=== PATIENT | female | born 1940 | race Caucasian/White ===

== ENCOUNTER 2016-10-12 14:58 | Inpatient (IN) | payer MEDICARE, MEDICAID ==
[2016-10-12] MEDS ORDERED: DILTIAZEM 25 MG/5 ML VIAL IV ONE (15:10)
[2016-10-12] MEDS ORDERED: SODIUM CHLORIDE 0.9% 10 ML FLUSH FLUSH PRN (15:10)
--- NOTE | 2016-10-12 15:18 | EDPRACDOC ---
- General Information Information Source: Patient Mode of Arrival: Car - History of Present Illness Onset: 30-45 mins HPI: Pt c/o palpitations, throat tightness and chest pain, sob. Denies fever, cough, congestion, n/v, abd pain, changes in bowel or bladder, leg swelling. Hx OR with 1 stent 5 yrs ago Chest Pain Location: Reports: Substernal Pain Radiation: Reports: Neck Symptoms Occur: Reports: Suddenly Cardiac Risk Factors: Reports: Hyperlipidemia, Hypertension, Diabetes Cardiac History of: Reports: Cardiac Cath, Stress Test, Stent PE Risk Factors: Reports: None Pain Came On: Reports: Suddenly Pain Status: Present Now Pain Description: Reports: Tightness Pain Severity: Mild Pain Worsens With: Reports: Nothing Pain Improves With: Reports: Nothing Associated Signs and Symptoms: Reports: SOB, Palpitations <Zakiya James - Last Filed: 10/12/16 18:35> <Star Marrero - Last Filed: 10/12/16 18:53> - General Information Stated Complaint: CP WITH PAIN IN THROAT 30 MINS AGO HX OR Time Seen by Provider: 10/12/16 15:10 Home Medications: Home Medications Lisinopril [Zestril] 40 mg PO DAILY 10/12/16 Metformin HCl 850 mg PO BID 10/12/16 Metoprolol Tartrate 25 mg PO BID 10/12/16 Rivaroxaban [Xarelto] 20 mg PO DAILY(MARQUES) #30 tablet 10/12/16 Tramadol HCl [Ultram] 50 mg PO DAILY PRN 10/12/16 Allergies/Adverse Reactions: Allergies Allergy/AdvReac Type Severity Reaction Status Date / Time No Known Allergies Allergy Verified 10/12/16 15:20 ED Past Medical History - History Reviewed Yes Nurses notes reviewed and agree except as marked - Social Medical History Smoking Status: Never smoker ETOH: None Substance Abuse: None <Zakiya James - Last Filed: 10/12/16 18:35> EDM Review of Systems - Review of Systems Constitutional: No Symptoms Reported. negative: Fever, Chills, Weakness, Fatigue, Loss of Appetite Ears: No Symptoms Reported. negative: Pain, Hearing Loss, Drainage, Ear Pulling Throat: No Symptoms Reported. negative: Pain, Swelling Nose: No Symptoms Reported. negative: Congestion, Bleeding, Discharge, Injection, Swelling, Deformity, Ecchymosis, Tender, Abrasion, Laceration Mouth: No Symptoms Reported. negative: Pain, Drooling Respiratory: Shortness of Breath Cardiovascular: Chest Pain, Palpitations Gastrointestinal: No Symptoms Reported. negative: Pain, Constipation, Nausea, Vomiting, Diarrhea, Melena, Formula Intolerance Genitourinary: No Symptoms Reported. negative: Dysuria, Hematuria, Frequency, Discharge, Bleeding, Testicular Pain, Neurological: No Symptoms Reported. negative: Headache, Dizziness, Seizure, Numbness, Weakness, Speech Difficulty, Gait Difficulty Musculoskeletal: Neck. negative: No Symptoms Reported, Arm, Ankle, Back, Chestwall, Elbow, Forearm, Femur, Foot, Hand, Hip, Knee, Leg, Pelvis, Ribs, Shoulder, Wrist Integumentary: No Symptoms Reported. negative: Itching, Rash, Bruising, Wound Allergic/Immunologic: No Symptoms Reported. negative: Hives, Itching Hematologic: No Symptoms Reported. negative: Lymphadenopathy, Easy Bruising, Easy Bleeding Psychiatric: No Symptoms Reported. negative: Anxiety, Depression, Hallucinations, Insomnia, Suicidal <Zakiya James - Last Filed: 10/12/16 18:35> - Physical Exam Constitutional: Alert, Distress (mild) Oriented to: Time, Person, Place Last recorded Vital Signs: Oxygen Pulse Oxygen Saturation O2 Device Oxygen Flow Rate Fraction of Inspired Oxygen ( FIO2) - HEENT Head: Normal ( normocephalic) Eye Exam: Normal (PERRL, EOMI, Sclera white) Neck: Normal (FROM, trachea at midline) - Respiratory/Cardiovascular Respiratory: Normal - CTA (BBS clear to auscultation without adventitious sounds ) Cardiovascular: Tachycardia, Irregular - GI Auscultation: Normal (NABS) Palpation: Normal (Soft,No rebound or guarding, non distended) Tenderness: Non tender - Musculoskeletal Back: Normal (Non-Tender) Extremities: Normal (Normal tone, Pulses 2+ No cyanosis or edema, FROM) - Integumentary Skin: Normal, Warm, Dry Lymphatics: Normal (no adenopathy) - Neurologic Memory Impaired: Normal Motor Function: Normal (Normal tone, Pulses 2+ No cyanosis or edema, FROM) Mood Description: Normal Perception: Normal <Zakiya James - Last Filed: 10/12/16 18:35> - Physical Exam Last recorded Vital Signs: Last Vital Signs Temp 97.8 F 10/12/16 15:10 Pulse 60 10/12/16 16:05 Resp 16 10/12/16 16:05 BP 119/59 L 10/12/16 16:05 Pulse Ox 92 10/12/16 16:05 Oxygen Pulse Oxygen Saturation 92 O2 Device Room Air Oxygen Flow Rate Fraction of Inspired Oxygen ( FIO2) <Star Marrero - Last Filed: 10/12/16 18:53> ED Chest Pain Exam - Respiratory/Cardiovascular Respiratory: Normal - CTA (clear to auscultation without adventitious sounds) Cardiovascular/Chest: Tachycardia, Irregular Radial Pulse: Normal Edema: negative: 1+, 2+, 3+, 4+, 5, 6 Chest Palpation: Normal (No chest tenderness) <Zakiya James - Last Filed: 10/12/16 18:35> - Differential Diagnosis Angina, CHF, Myocardial infarction, Other (afib with RVR) - Action Patient received Aspirin within last 24 hours?: Yes ASA given in the ED: No - Re-evaluation Re-evaluation 1 Re-evaluation Time: 15:48 (chest tightness improved) Re-evaluation 2 Re-evaluation Time: 18:36 (no chest pain, much improved) - Results 10/12/16 15:35 10/12/16 15:35 - EKG EKG #1 EKG Time: 15:06 Rate: bpm: 166 [place]: LAD Rhythm: Afib (RVR) Block: None ST: Nonsp Comments: no old ekg EKG #2 EKG Time: 15:58 Rate: bpm: 63 [place]: Normal Rhythm: NSR Block: None ST: Nonsp Comments: no old ekg - Diagnostic Imaging Chest Image interpreted by: Radiologist IMPRESSION: No acute cardiopulmonary process. <Zakiya James - Last Filed: 10/12/16 18:35> - Results 10/12/16 15:35 10/12/16 15:35 WBC 9.5 xk/uL (3.8-10.8) 10/12/16 15:35 RBC 5.32 xM/uL (4.20-5.40) 10/12/16 15:35 Hgb 16.2 g/dL (12.0-16.0) H 10/12/16 15:35 Hct 48.6 % (36-47) H 10/12/16 15:35 MCV 91 fL (81-99) 10/12/16 15:35 MCH 30.4 pg (27-32) 10/12/16 15:35 MCHC 33.3 g/dl (33-36) 10/12/16 15:35 RDW 13.8 % (11.5-14.5) 10/12/16 15:35 Plt Count 241 xk/uL (130-400) 10/12/16 15:35 MPV 9.1 fL (7.4-10.4) 10/12/16 15:35 Neut % (Auto) 58.8 % (45-76) 10/12/16 15:35 Lymph % (Auto) 28.1 % (17-44) 10/12/16 15:35 [place] % (Auto) 8.9 % (3-10) 10/12/16 15:35 Eos % (Auto) 2.9 % (0-5) 10/12/16 15:35 Baso % (Auto) 1.3 % (0-2) 10/12/16 15:35 Absolute Neuts (auto) 5.51 xk/uL (1.7-8.2) 10/12/16 15:35 Absolute Lymphs (auto) 2.66 xk/uL (0.65-4.75) 10/12/16 15:35 PT 10.0 SEC (9.2-11.2) 10/12/16 15:35 INR 1.0 10/12/16 15:35 APTT 24.5 SEC (22-35) 10/12/16 15:35 Puncture Site Right radial 10/12/16 16:00 pH 7.400 pH UNITS (7.35-7.45) 10/12/16 16:00 pCO2 37.0 mmHg (35-45) 10/12/16 16:00 pO2 68.0 mmHg (80-100) L 10/12/16 16:00 HCO3 22.9 MMOL/L (22-26) 10/12/16 16:00 Total CO2 24.0 MMOL/L (23-27) 10/12/16 16:00 Base Excess -1.5 (+/- 2) 10/12/16 16:00 FiO2 % 21% 10/12/16 16:00 Specimen Drawn By Kasgl 10/12/16 16:00 Sodium 141 mEq/L (137-146) 10/12/16 15:35 Potassium 4.2 mEq/L (3.5-5.1) 10/12/16 15:35 Chloride 104 mEq/L (98-107) 10/12/16 15:35 Carbon Dioxide 24 mMOL/L (22-33) 10/12/16 15:35 Anion Gap 17 mEq/L (8-16) H 10/12/16 15:35 BUN 20 MG/DL (7-17) H 10/12/16 15:35 Creatinine 0.90 MG/DL (0.52-1.04) 10/12/16 15:35 Estimated GFR (MDRD) > 60 mL/min (>=60) 10/12/16 15:35 Glucose 133 MG/DL (70-99) H 10/12/16 15:35 Calculated Osmolality 276 MOs/Kg (270-290) 10/12/16 15:35 Calcium 9.6 MG/DL (8.4-10.2) 10/12/16 15:35 Total Bilirubin 0.9 MG/DL (0.2-1.3) 10/12/16 15:35 AST 70 IU/L (14-36) H 10/12/16 15:35 ALT 61 IU/L (9-52) H 10/12/16 15:35 Alkaline Phosphatase 90 IU/L (55-165) 10/12/16 15:35 Troponin I < 0.01 ng/mL (<.04) 10/12/16 15:35 Fss-F-Nhjnyokiakg Pept 179 pg/mL (0-1800) 10/12/16 15:35 Total Protein 7.6 G/DL (6.3-8.2) 10/12/16 15:35 Albumin 4.4 G/DL (3.5-5.0) 10/12/16 15:35 Urine Color Pale yellow 10/12/16 15:52 Urine Clarity Clear 10/12/16 15:52 Urine pH 5.0 (5.0-8.0) 10/12/16 15:52 Ur Specific [place] 1.005 (1.003-1.035) 10/12/16 15:52 Urine Protein 1+ (NEG/TRACE) H 10/12/16 15:52 Urine Glucose (UA) Neg (NEGATIVE) 10/12/16 15:52 Urine Ketones Neg (NEGATIVE) 10/12/16 15:52 Urine Occult Blood Neg (NEG/TRACE) 10/12/16 15:52 Urine Nitrite Neg (NEGATIVE) 10/12/16 15:52 Urine Bilirubin Neg (NEGATIVE) 10/12/16 15:52 Urine Urobilinogen <2.0 MG/DL (0-1) 10/12/16 15:52 Ur Leukocyte Esterase Neg (NEGATIVE) 10/12/16 15:52 Urine RBC 0-2 (0-5) 10/12/16 15:52 Urine WBC 0-2 (0-5) 10/12/16 15:52 Ur Epithelial Cells 1+ 10/12/16 15:52 Urine Bacteria Few (NEG/FEW) 10/12/16 15:52 Urine Mucus Sm amt (NEG/OCC) 10/12/16 15:52 Lab Results 10/12/16 10/12/16 10/12/16 16:00 15:52 15:35 WBC RBC Hgb Hct MCV MCH MCHC RDW Plt Count MPV Neut % (Auto) Lymph % (Auto) [place] % (Auto) Eos % (Auto) Baso % (Auto) Absolute Neuts (auto) Absolute Lymphs (auto) PT 10.0 INR 1.0 APTT 24.5 Puncture Site Right radial pH 7.400 pCO2 37.0 pO2 68.0 L HCO3 22.9 Total CO2 24.0 Base Excess -1.5 FiO2 % 21% Specimen Drawn By Kasgl Sodium Potassium Chloride Carbon Dioxide Anion Gap BUN Creatinine Estimated GFR (MDRD) Glucose Calculated Osmolality Calcium Total Bilirubin AST ALT Alkaline Phosphatase Troponin I Gxc-G-Liiznzfyayg Pept Total Protein Albumin Urine Color Pale yellow Urine Clarity Clear Urine pH 5.0 Ur Specific [place] 1.005 Urine Protein 1+ H Urine Glucose (UA) Neg Urine Ketones Neg Urine Occult Blood Neg Urine Nitrite Neg Urine Bilirubin Neg Urine Urobilinogen <2.0 Ur Leukocyte Esterase Neg Urine RBC 0-2 Urine WBC 0-2 Ur Epithelial Cells 1+ Urine Bacteria Few Urine Mucus Sm amt 10/12/16 10/12/16 15:35 15:35 WBC 9.5 RBC 5.32 Hgb 16.2 H Hct 48.6 H MCV 91 MCH 30.4 MCHC 33.3 RDW 13.8 Plt Count 241 MPV 9.1 Neut % (Auto) 58.8 Lymph % (Auto) 28.1 [place] % (Auto) 8.9 Eos % (Auto) 2.9 Baso % (Auto) 1.3 Absolute Neuts (auto) 5.51 Absolute Lymphs (auto) 2.66 PT INR APTT Puncture Site pH pCO2 pO2 HCO3 Total CO2 Base Excess FiO2 % Specimen Drawn By Sodium 141 Potassium 4.2 Chloride 104 Carbon Dioxide 24 Anion Gap 17 H BUN 20 H Creatinine 0.90 Estimated GFR (MDRD) > 60 Glucose 133 H Calculated Osmolality 276 Calcium 9.6 Total Bilirubin 0.9 AST 70 H ALT 61 H Alkaline Phosphatase 90 Troponin I < 0.01 Yjw-X-Iihxkbosliw Pept 179 Total Protein 7.6 Albumin 4.4 Urine Color Urine Clarity Urine pH Ur Specific [place] Urine Protein Urine Glucose (UA) Urine Ketones Urine Occult Blood Urine Nitrite Urine Bilirubin Urine Urobilinogen Ur Leukocyte Esterase Urine RBC Urine WBC Ur Epithelial Cells Urine Bacteria Urine Mucus Laboratory Results - last 24 hr 10/12/16 10/12/16 10/12/16 15:35 15:35 15:35 WBC 9.5 RBC 5.32 Hgb 16.2 H Hct 48.6 H MCV 91 MCH 30.4 MCHC 33.3 RDW 13.8 Plt Count 241 MPV 9.1 Neut % (Auto) 58.8 Lymph % (Auto) 28.1 [place] % (Auto) 8.9 Eos % (Auto) 2.9 Baso % (Auto) 1.3 Absolute Neuts (auto) 5.51 Absolute Lymphs (auto) 2.66 PT 10.0 INR 1.0 APTT 24.5 Puncture Site pH pCO2 pO2 HCO3 Total CO2 Base Excess FiO2 % Specimen Drawn By Sodium 141 Potassium 4.2 Chloride 104 Carbon Dioxide 24 Anion Gap 17 H BUN 20 H Creatinine 0.90 Estimated GFR (MDRD) > 60 Glucose 133 H Calculated Osmolality 276 Calcium 9.6 Total Bilirubin 0.9 AST 70 H ALT 61 H Alkaline Phosphatase 90 Troponin I < 0.01 Wic-U-Mhmnjyompxj Pept 179 Total Protein 7.6 Albumin 4.4 Urine Color Urine Clarity Urine pH Ur Specific [place] Urine Protein Urine Glucose (UA) Urine Ketones Urine Occult Blood Urine Nitrite Urine Bilirubin Urine Urobilinogen Ur Leukocyte Esterase Urine RBC Urine WBC Ur Epithelial Cells Urine Bacteria Urine Mucus 10/12/16 10/12/16 15:52 16:00 WBC RBC Hgb Hct MCV MCH MCHC RDW Plt Count MPV Neut % (Auto) Lymph % (Auto) [place] % (Auto) Eos % (Auto) Baso % (Auto) Absolute Neuts (auto) Absolute Lymphs (auto) PT INR APTT Puncture Site Right radial pH 7.400 pCO2 37.0 pO2 68.0 L HCO3 22.9 Total CO2 24.0 Base Excess -1.5 FiO2 % 21% Specimen Drawn By Kasgl Sodium Potassium Chloride Carbon Dioxide Anion Gap BUN Creatinine Estimated GFR (MDRD) Glucose Calculated Osmolality Calcium Total Bilirubin AST ALT Alkaline Phosphatase Troponin I Mwt-A-Uexahtwatsm Pept Total Protein Albumin Urine Color Pale yellow Urine Clarity Clear Urine pH 5.0 Ur Specific [place] 1.005 Urine Protein 1+ H Urine Glucose (UA) Neg Urine Ketones Neg Urine Occult Blood Neg Urine Nitrite Neg Urine Bilirubin Neg Urine Urobilinogen <2.0 Ur Leukocyte Esterase Neg Urine RBC 0-2 Urine WBC 0-2 Ur Epithelial Cells 1+ Urine Bacteria Few Urine Mucus Sm amt Laboratory Results 10/12/16 15:35 10/12/16 15:35 <Star Marrero - Last Filed: 10/12/16 18:53> - Departure Disposition: Home Education/Counseling Given To: Patient, Family Member Education/Counseling Given Regarding: Diagnosis, Treatment <Zakiya James - Last Filed: 10/12/16 18:35> - Departure Yes I personally saw and evaluated the patient. Disposition: Admit IP To This Hospital Decision to Admit Time: 18:53 Decision to admit date: 10/12/16 Decision to admit: from ED - Physician Consulted Cardiology Time Called: 16:33 Provider Called: Bry Collins Time Felt Hat Pouncing Operator Hand Returned Call: 16:33 Consult Reason: CASE DISCUSSED. CADS VASC GREATER THAN 2. REC. 20 MG XARELTO DAILY, 2ND SET WITH TROP DUE TO CHEST PAIN. IF OKAY HOME WITHE CARDIO F/U. Hospitalist Time Called: 18:53 Provider Called: Thomas Mejia Time Felt Hat Pouncing Operator Hand Returned Call: 18:53 <Star Marrero - Last Filed: 10/12/16 18:53> - Departure Condition: Good Final Diagnosis: Atrial fibrillation with RVR, Elevated troponin Chest pain Qualifiers: Chest pain type: unspecified Qualified Code(s): R07.9 - Chest pain, unspecified Referrals: Waqar La PA [Primary Care Provider] - Call for Appointment Bry Collins MD [Staff Physician] - Call for Appointment Prescriptions: New Rivaroxaban [Xarelto] 20 mg PO DAILY(MARQUES) #30 tablet No Action Metoprolol Tartrate 25 mg PO BID Metformin HCl 850 mg PO BID Lisinopril [Zestril] 40 mg PO DAILY Tramadol HCl [Ultram] 50 mg PO DAILY PRN PRN Reason: Pain Forms: ED Discharge Instructions Additional Instructions: Return for worse or different symptoms.
[2016-10-12] MEDS ORDERED: Diltiazem HCl 100 MG in D5W 100 ML IV SCH (15:36)
--- NOTE | 2016-10-12 15:44 | DIRPT ---
CLINICAL DATA: Throat tightness and chest pain EXAM: PORTABLE CHEST 1 VIEW COMPARISON: None. FINDINGS: Normal mediastinum and cardiac silhouette. Normal pulmonary vasculature. No evidence of effusion, infiltrate, or pneumothorax. No acute bony abnormality. IMPRESSION: No acute cardiopulmonary process. Electronically Signed By: Martinez Wick M.D. On: 10/12/2016 15:41
[2016-10-12 15:53] LABS: AUTOMATED BASOPHIL 1.3 % (0-2); AUTOMATED EOSINOPHIL 2.9 % (0-5); AUTOMATED LYMPH 28.1 % (17-44); AUTOMATED MONOCYTE 8.9 % (3-10); AUTOMATED NEUTROPHIL 58.8 % (45-76); MPV 9.1 fL (7.4-10.4)
[2016-10-12 16:05] LABS: ALLEN'S TEST PASS; BEb -1.5 (+/- 2)
[2016-10-12 16:06] LABS: ABG Draw Site Right Radial
[2016-10-12 16:10] LABS: BLOOD UREA NITROGEN 20 MG/DL (7-17); CALCIUM 9.6 MG/DL (8.4-10.2); CALCULATED OSMOLALITY 276 MOs/Kg (270-290); CHLORIDE 104 mEq/L (98-107); GLUCOSE 133 MG/DL (70-99); PARTIAL THROMB. TIME 24.5 SEC (22-35); SODIUM LEVEL 141 mEq/L (137-146); TOTAL PROTEIN 7.6 G/DL (6.3-8.2)
[2016-10-12 16:13] LABS: LEUKOCYTES/URINE NEG (NEGATIVE); NITRITE/URINE NEG (NEGATIVE); RBC/URINE 0-2 (0-5); URINE OCCULT BLOOD NEG (NEG/TRACE); WBC/URINE 0-2 (0-5)
[2016-10-12] MEDS ORDERED: Enoxaparin 1 mg per kg per dose SQ ONE (18:53)
[2016-10-12] MEDS ORDERED: PROMETHAZINE 25 MG/ML VIAL IV PRN (18:59)
[2016-10-12] MEDS ORDERED: FLEET 4.5 OZ ENEMA PR PRN (18:59)
[2016-10-12] MEDS ORDERED: ACETAMINOPHEN 325 MG/TAB TABLET PO PRN (18:59)
[2016-10-12] MEDS ORDERED: ZOLPIDEM TARTRATE 5 MG TAB PO PRN (18:59)
[2016-10-12] MEDS ORDERED: MAGNESIUM HYDROXIDE 30 ML BOTTLE PO PRN (18:59)
[2016-10-12] MEDS ORDERED: ONDANSETRON HCL 4 MG/2 ML VIAL IV PRN (18:59)
[2016-10-12] MEDS ORDERED: BENZONATATE 100 MG PERLES PO PRN (18:59)
[2016-10-12] MEDS ORDERED: NITROGLYCERINE 0.4 MG TAB SL PRN (18:59)
[2016-10-12] MEDS ORDERED: SENNA CONCENTRATE TAB PO PRN (18:59)
[2016-10-12] MEDS ORDERED: Pharmacy Order Set Alert SCH (19:00)
[2016-10-12] MEDS ORDERED: ENOXAPARIN SODIUM 80 MG, ENOXAPARIN SODIUM 30 MG SQ ONE ×2 (19:00)
[2016-10-12] MEDS ORDERED: TRAMADOL HCL 50 MG TAB PO PRN (19:06)
--- NOTE | 2016-10-12 19:42 | HISTPHYS ---
- Chief Complaint Throat tightness and palpitations - History of Present Illness Patient is morbidly obese 76-year-old white female lives with her daughter and son-in-law who comes into the emergency room this evening complaining throat tightness starting several hours ago and palpitations. Shortness breath is gotten worse with the palpitations and states that it feels like she did in 2010 when she was admitted to the hospital in [facility] then transferred to [facility] for cardiac catheterization and had a stent placed. She was then on medication for a year and states she is unable to take aspirin because of gastric complaints. She did take 4 aspirin today however. She quit smoking 30 years ago and does not drink any alcoholic beverages. She is a [id number] diabetic morbidly obese with BMI of 43.6 suffering with hypertension obstructive sleep apnea using nocturnal CPAP and has GERD. - Medical History Cardiac History: Reports: Hypertension, Heart Attack, Cardiac Catheterization, Hypercholesterolemia Respiratory History: Reports: Other GI/ History: Reports: Gastroesophageal Reflux Musculoskeletal History: Reports: Arthritis Systemic History: Denies: Cancer Neurological History: Reports: No Significant History Psychological History: Denies: Depression - Surgical History Reports: Cardiac Catheterization (One coronary artery stent 2010 at [facility] in [facility]) Right ankle fracture repaired surgically and ureteral obstruction at the age of 18 bilateral lens implant - Medictions/Allergies Allergies No Known Allergies Allergy (Verified 10/12/16 15:20) Current Medication List: Reviewed Home Medications Lisinopril [Zestril] 40 mg PO DAILY 10/12/16 Metformin HCl 850 mg PO BID 10/12/16 Metoprolol Tartrate 25 mg PO BID 10/12/16 Rivaroxaban [Xarelto] 20 mg PO DAILY(MARQUES) #30 tablet 10/12/16 Tramadol HCl [Ultram] 50 mg PO DAILY PRN 10/12/16 - Family History Reports: Hypertension, Diabetes, Cardiac Disorders - Social History Travel Outside of [place] in the Last 3 Months?: No Lives: With Family Smoking Status: Former smoker (Quit smoking 30 years ago) Social History: Denies: Alcohol Use, Substance Use Disorder (No longer drinks alcohol) - Review of Systems Constitutional: Weakness Eyes: No Symptoms Reported (No blurry vision, visual changes, eye pain, or eye redness.) Ears: No Symptoms Reported (No ear pain or discharge) Nose: No Symptoms Reported (No nasal discharge/congestion or bleeding) Mouth: No Symptoms Reported (No oropharyngeal lesions or erythema) Throat/Neck: No Symptoms Reported (No throat pain or swelling.No oropharyngeal lesions or erythema.) Respiratory: Shortness of Breath, Other (Obstructive sleep apnea wearing CPAP nocturnally) Cardiovascular: Chest Pain, Palpitations Gastrointestinal: No Symptoms Reported (No abdominal pain, nausea, vomiting, diarrhea, constipation, or bloody stool.) Genitourinary: No Symptoms Reported (No dysuria or hematuria.) Neurological: No Symptoms Reported (No headache, dizziness, seizures, or focal weakness.) Musculoskeletal:: Arthritis, Osteoarthritis Integumentary: No Symptoms Reported (no rashes or lesions) Allergic/Immunologic: No Symptoms Reported (no rashes or lesions) Hematologic: No Symptoms Reported (No chronic anemia, bleeding, or easy bruising.), Other (Lymphatics- no lymph node swelling or pain.) Endocrine: Diabetes Psychiatric: No Symptoms Reported (Fully oriented, with normal and appropriate affect.) - Physical Exam Vital Signs: Initial Vitals Temperature 97.8 F 10/12/16 15:10 Pulse Rate 168 H 10/12/16 15:10 Respiratory Rate 18 10/12/16 15:10 Blood Pressure 198/93 H 10/12/16 15:10 Pulse Oxygen Saturation 93 10/12/16 15:10 Constitutional: Alert (Awake, Fully oriented. Normal and appropriate affect.Well appearing. Well nourished.), No apparent distress Oriented to: Time, Person, Place - HEENT Head: Normal (normocephalic, atraumatic.), Other (No cervical lymphadenopathy. No supraclavicular lymphadenopathy. Neck: No palpable mass, supple , trachea midline.) Eye: Normal (pupils equal, reactive to light, and round; EOMI, Sclera white) Oropharynx: Normal (Pharynx: Moist without exudate,Gums-no swelling, No oropharyngeal lesions or erythema, Mucous membranes are dry.) ENT EAC: Normal (No oropharyngeal lesions or erythema. Mucous membranes are dry. ) TMJ: Normal Nose: No Symptoms Reported (septum midline, Nares patent, without discharge or bleeding.) Respiratory: Normal - CTA (Clear to auscultation bilaterally. No wheezing, rales , rhonchi. Chest wall movements are symmetric. No use of accessory muscles to breathe.) Cardiovascular: Normal (RRR , Normal S1, S2. No murmurs, rubs, or gallops. PMI non-displaced. Carotids: no carotid bruits. No bradycardia or tachycardia. DP pulses 2+ bilaterally.) - GI Auscultation: Normal (normal active sounds) Palpation: Normal (Soft,non distended,nontender. No hepatosplenomegaly.), Other (Morbid obesity with BMI 41.7) Tenderness: Non tender (No rebound or guarding) Duong's Sign: Negative - Musculoskeletal Back: Normal (Non-Tender) Extremities: Normal (Normal tone, DP pulses 2+ bilaterally, No cyanosis or edema bilaterally, FROM bilaterally.) Spine: non-tender, normal inspection, limited range of motion - Integumentary Skin: Normal (Clean, dry, and intact. No rashes. No lesions.) Lymphatics: Normal (No cervical lymphadenopathy. No supraclavicular lymphadenopathy.) - Neurologic Memory Impaired: Normal Motor Function: Normal (Motor 5/5 throughout.Normal tone, Pulses 2+ No cyanosis or edema, FROM) Cranial Nerve: Normal (CN II-XII intact sensation, strength 5/5) Cerebellar: Normal (Babinski: toes downgoing bilaterally. Intact Finger to nose. Sensory grossly intact to light touch. Intact rapid alternating movements bilaterally. No pronator drift.) Mood Description: Normal (Fully oriented. Normal and appropriate affect.) Thought: Coherent Perception: Normal (Normal and appropriate affect.) - Focused CV Perfusion Exam Vital Signs: Last Vital Signs Temp 97.8 F 10/12/16 15:10 Pulse 55 L 10/12/16 19:00 Resp 20 10/12/16 19:00 BP 141/60 10/12/16 19:00 Pulse Ox 93 10/12/16 19:00 - Lab Results 10/12/16 15:35 Laboratory Results - last 24 hr 10/12/16 10/12/16 10/12/16 15:35 15:35 15:35 WBC 9.5 RBC 5.32 Hgb 16.2 H Hct 48.6 H MCV 91 MCH 30.4 MCHC 33.3 RDW 13.8 Plt Count 241 MPV 9.1 Neut % (Auto) 58.8 Lymph % (Auto) 28.1 [place] % (Auto) 8.9 Eos % (Auto) 2.9 Baso % (Auto) 1.3 Absolute Neuts (auto) 5.51 Absolute Lymphs (auto) 2.66 PT 10.0 INR 1.0 APTT 24.5 Puncture Site pH pCO2 pO2 HCO3 Total CO2 Base Excess FiO2 % Specimen Drawn By Sodium 141 Potassium 4.2 Chloride 104 Carbon Dioxide 24 Anion Gap 17 H BUN 20 H Creatinine 0.90 Estimated GFR (MDRD) > 60 Glucose 133 H Calculated Osmolality 276 Calcium 9.6 Total Bilirubin 0.9 AST 70 H ALT 61 H Alkaline Phosphatase 90 Troponin I < 0.01 [id number] Pept 179 Total Protein 7.6 Albumin 4.4 Urine Color Urine Clarity Urine pH Ur Specific [place] Urine Protein Urine Glucose (UA) Urine Ketones Urine Occult Blood Urine Nitrite Urine Bilirubin Urine Urobilinogen Ur Leukocyte Esterase Urine RBC Urine WBC Ur Epithelial Cells Urine Bacteria Urine Mucus 10/12/16 10/12/16 10/12/16 15:52 16:00 18:01 WBC RBC Hgb Hct MCV MCH MCHC RDW Plt Count MPV Neut % (Auto) Lymph % (Auto) [place] % (Auto) Eos % (Auto) Baso % (Auto) Absolute Neuts (auto) Absolute Lymphs (auto) PT INR APTT Puncture Site Right radial pH 7.400 pCO2 37.0 pO2 68.0 L HCO3 22.9 Total CO2 24.0 Base Excess -1.5 FiO2 % 21% Specimen Drawn By [place] Sodium Potassium Chloride Carbon Dioxide Anion Gap BUN Creatinine Estimated GFR (MDRD) Glucose Calculated Osmolality Calcium Total Bilirubin AST ALT Alkaline Phosphatase Troponin I 0.27 [id number] Pept Total Protein Albumin Urine Color Pale yellow Urine Clarity Clear Urine pH 5.0 Ur Specific [place] 1.005 Urine Protein 1+ H Urine Glucose (UA) Neg Urine Ketones Neg Urine Occult Blood Neg Urine Nitrite Neg Urine Bilirubin Neg Urine Urobilinogen <2.0 Ur Leukocyte Esterase Neg Urine RBC 0-2 Urine WBC 0-2 Ur Epithelial Cells 1+ Urine Bacteria Few Urine Mucus Sm amt 10/12/16 21:45 WBC RBC Hgb Hct MCV MCH MCHC RDW Plt Count MPV Neut % (Auto) Lymph % (Auto) [place] % (Auto) Eos % (Auto) Baso % (Auto) Absolute Neuts (auto) Absolute Lymphs (auto) PT INR APTT Puncture Site pH pCO2 pO2 HCO3 Total CO2 Base Excess FiO2 % Specimen Drawn By Sodium Potassium Chloride Carbon Dioxide Anion Gap BUN Creatinine Estimated GFR (MDRD) Glucose Calculated Osmolality Calcium Total Bilirubin AST ALT Alkaline Phosphatase Troponin I 0.82 H* D Gvx-Q-Pysryquxcat Pept Total Protein Albumin Urine Color Urine Clarity Urine pH Ur Specific [place] Urine Protein Urine Glucose (UA) Urine Ketones Urine Occult Blood Urine Nitrite Urine Bilirubin Urine Urobilinogen Ur Leukocyte Esterase Urine RBC Urine WBC Ur Epithelial Cells Urine Bacteria Urine Mucus - Diagnostic Findings Initial EKG shows rapid atrial fib up to [address] depressions anteriorly and laterally. - Assessment (1) Acute coronary insufficiency I24.8 - OTHER FORMS OF ACUTE ISCHEMIC HEART DISEASE Acute Present on Admission: Yes Coronary insufficiency with positive troponin up to 0.85 and will repeat another 1 in a.m.. Consult obtained with Dr. Garcia and patient may go to [facility] for cardiac catheterization tomorrow morning. She states that the discomfort she had today is similar to that which she experienced 2010 when she had her previous stent placed at [facility] in [place]. (2) Non-insulin dependent type 2 diabetes mellitus E11.9 - TYPE 2 DIABETES MELLITUS WITHOUT COMPLICATIONS Chronic Present on Admission: Yes Sliding scale insulin therapy and continue medications. (3) Hypertension I10 - ESSENTIAL (PRIMARY) HYPERTENSION Chronic Present on Admission: Yes Qualifiers: Hypertension type: essential hypertension Qualified Code(s): I10 - Essential (primary) hypertension Continue medications. (4) Atrial fibrillation with RVR I48.91 - UNSPECIFIED ATRIAL FIBRILLATION Acute Present on Admission: Yes Rapid atrial fib may be a manifestation of coronary artery disease or vice versa with associated stress from exertional work associated from packing and moving back to [facility]. Thyroid panel is pending. (5) Chest pain R07.9 - CHEST PAIN, UNSPECIFIED Acute Present on Admission: Yes Qualifiers: Chest pain type: unspecified Ischemic chest pain type: I Qualified Code(s ): R07.9 - Chest pain, unspecified Associated with her coronary artery disease and rapid atrial fib. Troponin is positive. (6) Sleep apnea G47.30 - SLEEP APNEA, UNSPECIFIED Chronic Present on Admission: Yes Qualifiers: Sleep apnea type: obstructive Qualified Code(s): G47.33 - Obstructive sleep apnea (adult) (pediatric) Nocturnal CPAP. Weight loss would be good. (7) Coronary artery disease I25.10 - ATHSCL HEART DISEASE OF [place] CORONARY ARTERY W/O ANG PCTRS Chronic Present on Admission: Yes Qualifiers: Coronary Disease-Associated Artery/Lesion type: [place] artery [place] vs. transplanted heart: [place] heart Associated angina: without angina Qualified Code(s): I25.10 - Atherosclerotic heart disease of [place] coronary artery without angina pectoris Troponin is up with rapid atrial fib controlled. - Plan Due to the presence of and / or the risk of deterioration, my attendance to this patient required critical care time, including assessment/reassessment, documentation, ordering and interpreting ancillary studies, discussion with staff and consultants,patient and family, and excludes time spent on separately billable procedures. This individual is critically ill and in danger of dying. Case Care Discussed with: Patient, Nursing Staff Total Time: Critical care time spent 1 hour 23 minutes Critical Care: Yes Code: 291 (292)
--- NOTE | 2016-10-12 20:13 | PCM.CARDCO ---
Consultation Date: 10/12/16 Requesting Physician: Thomas Mejia Juice Weigher: Tono Garcia Consult Reason: Other (Recurrent atrial fibrillation associated with cardiac ischemia) - History of Present Illness Chief Complaint: Throat tightness and palpitations - Past Medical and Surgical History Cardiac History: Reports: Atrial Fibrillation (Initial episode 2010), Hypertension, Heart Attack, Cardiac Catheterization (2010she had ACS associated with atrial fibrillation and PCI), Hypercholesterolemia, Other Respiratory History: Reports: Other GI/ History: Reports: Gastroesophageal Reflux Systemic History: Denies: Cancer Musculoskeletal History: Reports: Arthritis Psychological History: Denies: Depression, Alcoholism, Substance Use Disorder ( No longer drinks alcohol) Past Surgical History: Reports: Cardiac Catheterization (One coronary artery stent 2010 at [facility] in [facility]) Allergies No Known Allergies Allergy (Verified 10/12/16 15:20) Home Medications Lisinopril [Zestril] 40 mg PO DAILY 10/12/16 Metformin HCl 850 mg PO BID 10/12/16 Metoprolol Tartrate 25 mg PO BID 10/12/16 Rivaroxaban [Xarelto] 20 mg PO DAILY(MARQUES) #30 tablet 10/12/16 Tramadol HCl [Ultram] 50 mg PO DAILY PRN 10/12/16 - Social History Travel Outside of in the Last 3 Months?: No Lives: With Family Smoking Status: Former smoker (Quit smoking 30 years ago) Social History: Denies: Alcohol Use, Substance Use Disorder (No longer drinks alcohol) - Review of Systems Yes All systems reviewed and were negative except as marked Constitutional: Weakness - Cardiovascular Chest Pain (Radiating to the throat tightness heaviness it has resolved now that she has converted in the ED lasted for about an hour and a half and was associated with rapid atrial fibrillation. She does not have a pattern typical exertional angina), Palpitations - Physical Exam Constitutional: Alert, Other (She recently converted in sinus rhythm presently comfortable not having chest pain) Oriented to: Time, Person, Place Exam: Last Vital Signs Temp 97.8 F 10/12/16 15:10 Pulse 56 L 10/12/16 20:01 Resp 20 10/12/16 20:01 BP 136/63 10/12/16 20:01 Pulse Ox 93 10/12/16 20:01 - HEENT Head: Normal (No neck vein distention thyromegaly or bruit) Eye: Normal (PERRL, EOMI, Sclera white) Nose: No Symptoms Reported. negative: Congestion, Bleeding, Discharge, Injection, Swelling, Deformity, Ecchymosis, Tender, Abrasion, Laceration - Respiratory/Cardiovascular Respiratory: Normal - CTA (clear to auscultation without adventitious sounds) Cardiovascular: Other (Distant regular rhythm S1-S2 normal no gallop murmur rub) - GI Auscultation: Normal (The abdomen soft nondistended nontender) Palpation: Normal (Soft,No rebound or guarding, non distended) Tenderness: Non tender - Musculoskeletal Back: Normal (Non-Tender) Extremities: Normal (Normal tone, Pulses 2+ No cyanosis or edema, FROM), Edema, Pedal Edema, Radial Pulse. negative: Calf Tenderness, Clubbing, Cyanosis, Femoral Pulse, Pedal Pulse - Integumentary Skin: Normal, Warm, Dry. negative: Clammy, Diaphoretic, Mottling, Petechiae, Jaundice Lymphatics: Normal (no adenopathy) - Neurologic Memory Impaired: Normal Mood Description: Normal Perception: Normal - Lab Results Laboratory Tests 10/12/16 10/12/16 10/12/16 15:35 15:35 15:35 WBC 9.5 Hgb 16.2 H Hct 48.6 H INR 1.0 pH pCO2 pO2 Potassium 4.2 BUN 20 H Estimated GFR (MDRD) > 60 Troponin I < 0.01 10/12/16 10/12/16 16:00 18:01 WBC Hgb Hct INR pH 7.400 pCO2 37.0 pO2 68.0 L Potassium BUN Estimated GFR (MDRD) Troponin I 0.27 Her rhythm strip in the emergency room shows sinus rhythm presently, her initial EKG showed rapid atrial fibrillation with diffuse ST segment depression consistent with acute ischemia Chest x-ray,IMPRESSION: No acute cardiopulmonary process. - Assessment/Plan (1) Unstable angina pectoris I20.0 - UNSTABLE ANGINA Acute Present on Admission: Yes Comment: She presents the hospital with unstable angina related to rapid atrial fibrillation. Knowing that she has coronary artery disease with remote PCI I suspect this is not demand ischemia but is due to obstructive CAD and if her troponin continues to rise should be best served by referral to coronary arteriography. She is on rivaroxaban I would not give her heparin on give her aspirin beta-echo statin and plan to reassess tomorrow morning. (2) Sleep apnea G47.30 - SLEEP APNEA, UNSPECIFIED Chronic Present on Admission: Yes S Comment: Stable treated as an outpatient, this helpful to avoid recurrent atrial fibrillation. (3) Atrial fibrillation with RVR I48.91 - UNSPECIFIED ATRIAL FIBRILLATION Acute Present on Admission: Yes Comment: Her chads 2 Vasc score is 5, she should continue anticoagulants and she has PCI could take double therapy with clopidogrel rivaroxaban. (4) Coronary artery disease I25.10 - ATHSCL HEART DISEASE OF [place] CORONARY ARTERY W/O ANG PCTRS Chronic [place] artery [place] heart without angina I25.10 - Atherosclerotic heart disease of [place] coronary artery without angina pectoris Comment: Clinically she presents with ACS unstable angina related to rapid heart rate in the setting of known CAD. Troponin elevation is significantly ED from baseline but not diagnostic will reassess early and likely is best served by referral to coronary arteriography tomorrow. (5) Hypertension I10 - ESSENTIAL (PRIMARY) HYPERTENSION Chronic essential hypertension I10 - Essential (primary) hypertension Comment: Stable continue current treatment, hold her ISAIAS-inhibitor tomorrow morning to reduce likely to dye induced injury.
[2016-10-12] MEDS ORDERED: APIXABAN 5 MG TABLET PO SCH (21:00)
[2016-10-12] MEDS ORDERED: Vaccine Screening Complete SCH (21:00)
[2016-10-12] MEDS ORDERED: ROSUVASTATIN 10 MG TAB PO SCH (21:00)
[2016-10-12] MEDS: CARVEDILOL 3.125 MG TAB PO SCH (21:31)
[2016-10-12] MEDS: METOPROLOL TARTRATE 25 MG TAB PO SCH (22:01)
[2016-10-13 04:10] VITALS: BMI 41.7
[2016-10-13] MEDS ORDERED: NITROGLYCERINE 2 % OINTMENT PACK TOP SCH (06:00)
[2016-10-13] MEDS ORDERED: METFORMIN 850 MG PO SCH (07:00)
[2016-10-13 07:04] LABS: LDL (calc.) 127.6 MG/DL (<100); VLDL (calc.) 36.4 MG/DL (5-40)
[2016-10-13] MEDS ORDERED: FLU VACCINE (Afluria) 0.5 ML DOSE IM ONE (08:00)
[2016-10-13] MEDS ORDERED: LISINOPRIL 40 MG TAB PO SCH (09:00)
[2016-10-13] MEDS: METOPROLOL TARTRATE 25 MG TAB PO SCH (09:06)
--- NOTE | 2016-10-13 09:55 | PCM.CARD ---
- Subjective Reason for visit: Follow up abnormal troponin I. Vital Signs: Last Vital Signs Temp 97.3 F L 10/13/16 07:42 Pulse 65 10/13/16 07:42 Resp 18 10/13/16 07:42 BP 109/60 10/13/16 07:42 Pulse Ox 94 10/13/16 07:42 PE: General Appearance: Well developed. Well nourished. In no acute distress. Lungs: Chest was not overinflated. Clear to auscultation. Cardiovascular: Jugular Venous Distention: JVD not increased. Heart Rate And Rhythm: Normal. Heart Sounds: Normal. Murmurs: No murmurs were heard. Carotid Arteries: Carotid pulses were normal. No bruit in the carotid artery. Edema: Not present. Lower extremities pulses normal (including femoral popliteal and dorsalis pedis) . Musculoskeletal System: General/bilateral: No cyanosis of the fingers. Neurological: Oriented to time, place, and person. Nails: No clubbing of the fingernails. Lab/DI Results Reviewed: Laboratory Tests 10/12/16 10/12/16 10/12/16 15:35 15:35 15:35 WBC 9.5 RBC 5.32 Hgb 16.2 H Hct 48.6 H MCV 91 MCH 30.4 MCHC 33.3 RDW 13.8 Plt Count 241 MPV 9.1 Neut % (Auto) 58.8 Lymph % (Auto) 28.1 Denali % (Auto) 8.9 Eos % (Auto) 2.9 Baso % (Auto) 1.3 Absolute Neuts (auto) 5.51 Absolute Lymphs (auto) 2.66 PT 10.0 INR 1.0 APTT 24.5 Puncture Site pH pCO2 pO2 HCO3 Total CO2 Base Excess FiO2 % Specimen Drawn By Sodium 141 Potassium 4.2 Chloride 104 Carbon Dioxide 24 Anion Gap 17 H BUN 20 H Creatinine 0.90 Estimated GFR (MDRD) > 60 Glucose 133 H POC Capillary Glucose Hemoglobin A1c Calculated Osmolality 276 Calcium 9.6 Total Bilirubin 0.9 AST 70 H ALT 61 H Alkaline Phosphatase 90 Troponin I < 0.01 Sdl-Z-Wckuzmwcewc Pept 179 Total Protein 7.6 Albumin 4.4 Triglycerides Cholesterol LDL Cholesterol, Calc VLDL Cholesterol, Calc HDL Cholesterol Cholesterol/HDL Ratio TSH Urine Color Urine Clarity Urine pH Ur Specific Stover Urine Protein Urine Glucose (UA) Urine Ketones Urine Occult Blood Urine Nitrite Urine Bilirubin Urine Urobilinogen Ur Leukocyte Esterase Urine RBC Urine WBC Ur Epithelial Cells Urine Bacteria Urine Mucus 10/12/16 10/12/16 10/12/16 15:52 16:00 18:01 WBC RBC Hgb Hct MCV MCH MCHC RDW Plt Count MPV Neut % (Auto) Lymph % (Auto) Denali % (Auto) Eos % (Auto) Baso % (Auto) Absolute Neuts (auto) Absolute Lymphs (auto) PT INR APTT Puncture Site Right radial pH 7.400 pCO2 37.0 pO2 68.0 L HCO3 22.9 Total CO2 24.0 Base Excess -1.5 FiO2 % 21% Specimen Drawn By Kasgl Sodium Potassium Chloride Carbon Dioxide Anion Gap BUN Creatinine Estimated GFR (MDRD) Glucose POC Capillary Glucose Hemoglobin A1c Calculated Osmolality Calcium Total Bilirubin AST ALT Alkaline Phosphatase Troponin I 0.27 [id number]-R-Okdgdgqvauc Pept Total Protein Albumin Triglycerides Cholesterol LDL Cholesterol, Calc VLDL Cholesterol, Calc HDL Cholesterol Cholesterol/HDL Ratio TSH Urine Color Pale yellow Urine Clarity Clear Urine pH 5.0 Ur Specific Stover 1.005 Urine Protein 1+ H Urine Glucose (UA) Neg Urine Ketones Neg Urine Occult Blood Neg Urine Nitrite Neg Urine Bilirubin Neg Urine Urobilinogen <2.0 Ur Leukocyte Esterase Neg Urine RBC 0-2 Urine WBC 0-2 Ur Epithelial Cells 1+ Urine Bacteria Few Urine Mucus Sm amt 10/12/16 10/13/16 10/13/16 21:45 05:30 05:30 WBC RBC Hgb Hct MCV MCH MCHC RDW Plt Count MPV Neut % (Auto) Lymph % (Auto) Denali % (Auto) Eos % (Auto) Baso % (Auto) Absolute Neuts (auto) Absolute Lymphs (auto) PT INR APTT Puncture Site pH pCO2 pO2 HCO3 Total CO2 Base Excess FiO2 % Specimen Drawn By Sodium Potassium Chloride Carbon Dioxide Anion Gap BUN Creatinine Estimated GFR (MDRD) Glucose 122 H POC Capillary Glucose Hemoglobin A1c Calculated Osmolality Calcium Total Bilirubin AST ALT Alkaline Phosphatase Troponin I 0.82 H* D 0.72 H* Eyo-L-Ervevuseqgr Pept Total Protein Albumin Triglycerides 182 H Cholesterol 213 H LDL Cholesterol, Calc 127.6 H VLDL Cholesterol, Calc 36.4 HDL Cholesterol 49.0 Cholesterol/HDL Ratio 4.3 TSH Urine Color Urine Clarity Urine pH Ur Specific Stover Urine Protein Urine Glucose (UA) Urine Ketones Urine Occult Blood Urine Nitrite Urine Bilirubin Urine Urobilinogen Ur Leukocyte Esterase Urine RBC Urine WBC Ur Epithelial Cells Urine Bacteria Urine Mucus 10/13/16 10/13/16 10/13/16 05:48 05:48 06:40 WBC RBC Hgb Hct MCV MCH MCHC RDW Plt Count MPV Neut % (Auto) Lymph % (Auto) Denali % (Auto) Eos % (Auto) Baso % (Auto) Absolute Neuts (auto) Absolute Lymphs (auto) PT INR APTT Puncture Site pH pCO2 pO2 HCO3 Total CO2 Base Excess FiO2 % Specimen Drawn By Sodium Potassium Chloride Carbon Dioxide Anion Gap BUN Creatinine Estimated GFR (MDRD) Glucose POC Capillary Glucose 122 H Hemoglobin A1c 6.6 H Calculated Osmolality Calcium Total Bilirubin AST ALT Alkaline Phosphatase Troponin I Sfv-C-Fllkuylcucw Pept Total Protein Albumin Triglycerides Cholesterol LDL Cholesterol, Calc VLDL Cholesterol, Calc HDL Cholesterol Cholesterol/HDL Ratio TSH 1.38 Urine Color Urine Clarity Urine pH Ur Specific Stover Urine Protein Urine Glucose (UA) Urine Ketones Urine Occult Blood Urine Nitrite Urine Bilirubin Urine Urobilinogen Ur Leukocyte Esterase Urine RBC Urine WBC Ur Epithelial Cells Urine Bacteria Urine Mucus - Assessment/Plan (1) Non-STEMI (non-ST elevated myocardial infarction) Acute I21.4 - NON-ST ELEVATION (NSTEMI) MYOCARDIAL INFARCTION Present on Admission: Yes Comment/Plan: Patient came with typical tightness squeezing pressure burning in the chest and that has started yesterday. And she said this is exactly the same thing she had couple years ago when she required stenting. After that she start having palpitations. She went to atrial fibrillation. We discussed options in this situation considering her symptomatology risk factors as well as prior history of coronary artery disease I best course of action will be to proceed directly to cardiac catheterization laboratory. I per explained procedure to her including all risk benefits as well as alternatives. Will proceed. She will be transferred to [facility] for it. (2) Acute coronary insufficiency Acute I24.8 - OTHER FORMS OF ACUTE ISCHEMIC HEART DISEASE Present on Admission: Yes Comment/Plan: Discussion as above. (3) Atrial fibrillation with RVR Acute I48.91 - UNSPECIFIED ATRIAL FIBRILLATION Present on Admission: Yes Comment/Plan: She converted to normal sinus rhythm. Apparently does some confusion about her Xarelto. She was taking Xarelto only for about a year after stent implantation and she was told she does not need this anymore. Regardless because of paroxysm of atrial fibrillation she will required anticoagulation. But 1st we need to address issue of non STEMI. If she will have significant coronary lesion I think that need to be addressed then decision to be made about potential antiarrhythmic therapy. However if coronary artery disease is reason for her atrial fibrillation if we addressed this by stenting and then we may not need to put her on any antiarrhythmic. Everything depends what was fine during cardiac catheterization today. (4) Hypertension Chronic I10 - ESSENTIAL (PRIMARY) HYPERTENSION Present on Admission: Yes essential hypertension I10 - Essential (primary) hypertension Comment/Plan: Blood pressure controlled with medications. - Plan Patient came to hospital because of chest tightness. She also had atrial fibrillation with ventricle rate being elevated. She rule in for non STEMI. She will be transferred to [facility] for cardiac catheterization.
[2016-10-13] MEDS ORDERED: HEPARIN 5000 UNITS/ML VIAL IV ONE (10:00)
--- NOTE | 2016-10-13 10:49 | CAPUEKG ---
[place], [place] Test Date: 2016-10-13 Pat Name: CYNDIE ANAYA Department: Room: 446 Gender: Female [employer]: : Requested By: Order Number: Reading MD: Bry Collins MD Measurements Intervals [place] Rate: 60 P: 44 VT: 136 QRS: -6 QRSD: 100 T: 23 QT: 448 QTc: 448 Interpretive Statements Normal sinus rhythm Normal ECG Electronically Signed On 10-13-16 10:48:43 EST by Bry Collins MD [id number]> [id number]
[2016-10-13 11:24] VITALS: BP 148/74; PULSE 53; TEMP 98.2
[2016-10-14] MEDS ORDERED: FLU VACCINE (Afluria) 0.5 ML DOSE IM ONE (08:00)
--- NOTE | 2016-10-14 12:55 | PCM.DCS92 ---
- Final/Secondary Discharge Diagnosis (1) Non-STEMI (non-ST elevated myocardial infarction) Acute I21.4 - NON-ST ELEVATION (NSTEMI) MYOCARDIAL INFARCTION Present on Admission: Yes Comment: Cardiac enzymes have been trending up. Dr. Collins has seen in consultation and has recommended heart catheterization. She will be transferred this morning. (2) Atrial fibrillation with RVR Acute I48.91 - UNSPECIFIED ATRIAL FIBRILLATION Present on Admission: Yes Comment: Likely will need full anticoagulation but unable to address this until after she undergoes her heart catheterization. (3) Hypertension Chronic I10 - ESSENTIAL (PRIMARY) HYPERTENSION Present on Admission: Yes essential hypertension I10 - Essential (primary) hypertension Comment: Continue medications. (4) Non-insulin dependent type 2 diabetes mellitus Chronic E11.9 - TYPE 2 DIABETES MELLITUS WITHOUT COMPLICATIONS Present on Admission: Yes Comment: Sliding scale insulin therapy and continue medications. Discharge Disposition: Trans. to Other Hospital Discharge Condition: Good Forms: ED Discharge Instructions Physician Follow up/Referrals: Waqar La PA [Primary Care Provider] - Call for Appointment Bry Collins MD [Staff Physician] - Call for Appointment Home Medications / New Prescriptions: New Rivaroxaban [Xarelto] 20 mg PO DAILY(MARQUES) #30 tablet No Action Metoprolol Tartrate 25 mg PO BID Metformin HCl 850 mg PO BID Lisinopril [Zestril] 40 mg PO DAILY Tramadol HCl [Ultram] 50 mg PO DAILY PRN PRN Reason: Pain O2 Device: Room Air Additional Instructions: Return for worse or different symptoms. - DC Summary Notes Hospital Course Note:: Discharge summary on patient named CYNDIE ANAYA admitted to [facility] on 10/12/16 by Thomas Mejia MD. Date of discharge is []. Ms Anaya is a 76-year-old white female with history of coronary artery disease and stenting in the past who presented to the emergency room with complaint of throat tightness and heart palpitations. She also had associated shortness of breath and symptoms were consistent with heart symptoms she had in 2010 when she had heart catheterization and stent placed in [place]. She was admitted to the hospital under chest pain center protocol. Serial cardiac enzymes were trended and unfortunately trended into the positive range. Dr. Collins with Cardiology saw her in consultation and recommended heart catheterization. Since admission she has been stable without chest pain. She is being transferred to [facility] for heart catheterization and further management. Total Time: 30 min - Transfer to Other Facility Accepting Physician: TAWNYA Weber Facility Dept.: collaborative physician Transfer Form Completed: Yes - Physical Exam Vital Signs: Last Vital Signs Temp 98.2 F 10/13/16 11:07 Pulse 53 L 10/13/16 11:07 Resp 18 10/13/16 11:07 BP 148/74 10/13/16 11:07 Pulse Ox 94 10/13/16 11:07 Oxygen Pulse Oxygen Saturation 94 O2 Device Room Air Oxygen Flow Rate Fraction of Inspired Oxygen ( FIO2) Constitutional: No apparent distress, Alert (Awake, Fully oriented. Normal and appropriate affect.Well appearing. Well nourished.), Well nourished, Well appearing Oriented to: Time, Person, Place - HEENT Head: Normal (normocephalic, atraumatic.), Other (No cervical lymphadenopathy. No supraclavicular lymphadenopathy. Neck: No palpable mass, supple , trachea midline.) Eye: Normal (pupils equal, reactive to light, and round; EOMI, Sclera white) Oropharynx: Normal (Pharynx: Moist without exudate,Gums-no swelling, No oropharyngeal lesions or erythema, Mucous membranes are dry.) ENT EAC: Normal (No oropharyngeal lesions or erythema. Mucous membranes are dry. ) TMJ: Normal Nose: No Symptoms Reported (septum midline, Nares patent, without discharge or bleeding.) - Respiratory/Cardiovascular Respiratory: Normal - CTA (Clear to auscultation bilaterally. No wheezing, rales , rhonchi. Chest wall movements are symmetric. No use of accessory muscles to breathe.) Cardiovascular: Normal (RRR , Normal S1, S2. No murmurs, rubs, or gallops. PMI non-displaced. Carotids: no carotid bruits. No bradycardia or tachycardia. DP pulses 2+ bilaterally.) - GI Auscultation: Normal (normal active sounds) Palpation: Normal (Soft,non distended,nontender. No hepatosplenomegaly.), Other (Morbid obesity with BMI 41.7) Tenderness: Non tender (No rebound or guarding) Duong's Sign: Negative - Musculoskeletal Back: Normal (Non-Tender) Extremities: Normal (Normal tone, DP pulses 2+ bilaterally, No cyanosis or edema bilaterally, FROM bilaterally.) - Integumentary Skin: Normal (Clean, dry, and intact. No rashes. No lesions.) Lymphatics: Normal (No cervical lymphadenopathy. No supraclavicular lymphadenopathy.) - Neurologic Memory Impaired: Normal Motor Function: Normal Cranial Nerve: Normal Cerebellar: Normal (Babinski: toes downgoing bilaterally. Intact Finger to nose. Sensory grossly intact to light touch. Intact rapid alternating movements bilaterally. No pronator drift.) Mood Description: Normal (Fully oriented. Normal and appropriate affect.) Thought: Coherent Perception: Normal (Normal and appropriate affect.)
== END 2016-10-13 11:30 | disposition short-term general hospital (02) | DRG 281 ==
LOC: ED 14:58 → PCU 18:59 → OBSVTOIN 19:37
PROVIDERS: ADMIT Internal Medicine; ATTEND Hospitalist
PROC: 039B3ZZ Drainage of Right Radial Artery, Percutaneous Approach (ICD-10-PCS; principal; 2016-10-12)
DX: I21.4 Non-ST elevation (NSTEMI) myocardial infarction (principal); Z68.41 Body mass index [BMI] 40.0-44.9, adult; I48.91 Unspecified atrial fibrillation; E11.9 Type 2 diabetes mellitus without complications; I10 Essential (primary) hypertension; I25.10 Atherosclerotic heart disease of native coronary artery without angina pectoris; Z98.61 Coronary angioplasty status; E66.01 Morbid (severe) obesity due to excess calories; G47.33 Obstructive sleep apnea (adult) (pediatric); K21.9 Gastro-esophageal reflux disease without esophagitis; I25.2 Old myocardial infarction; E78.00 Pure hypercholesterolemia, unspecified; M19.90 Unspecified osteoarthritis, unspecified site; Z79.899 Other long term (current) drug therapy; Z87.891 Personal history of nicotine dependence; I24.8 Other forms of acute ischemic heart disease
CPT/HCPCS: 36415; 36600; 71010; 80053; 80061; 81001; 82803; 82947; 82962; 83036; 83880; 84443; 84484; 85025; 85610; 85730; 90656; 93005; 96372; 96374; 99284; G0378; J1644; J1650; J3490